=== PATIENT | female | born 1965 | race Caucasian/White ===

== ENCOUNTER 2016-11-26 23:46 | Emergency (ER) | payer OTHER ==
[~2016-11-26] VITALS: Ht 160 cm; Wt 81.8 kg
[2016-11-27] VITALS: BP 158/92; PULSE 88; RESP 16; O2SAT 98
[2016-11-27 01:28] LABS: BASOPHILS % (AUTO) 0.5 % (0-3); EOSINOPHILS % (AUTO) 1.8 % (0-5); MONOCYTES % (AUTO) 4.9 % (4-12); Mean Corpuscular Hemoglobin 30.5 pg (27.0-35.0); Mean Corpuscular Volume 86.5 fL (81-100); NEUTROPHILS % (AUTO) 75.1 % (40-74); Platelet Count 163 bil/L (150-400)
--- NOTE | 2016-11-27 02:19 | ED.REPORT ---
HPI-Abd Pain F 40 and Over Date of Service Nov 27, 2016 ED Provider: Miguel Andersen MD Pt is a 51 year old female with a hx of shingles presenting to the ED complaining of right sided abdominal pain onset right after eating a salad for dinner. Associated symptoms include nausea and vomiting. Denies hx of abdominal pain or GERD. Denies any recent weight loss, diarrhea, fever, or dysuria. Pt's mother is admitted in the hospital and she went down to the cafeteria for dinner when symptoms began. Nursing Notes Stated Complaint: RIGHT SIDE ABDOMINAL PAIN Chief Complaint: Female Abdominal Pain Nursing Notes Reviewed: Yes Allergies: Coded Allergies: No Known Allergies (Verified , 11/09/03) Uncoded Allergies: No Known Allergies (Allergy, Severe, 11/09/03) General Time Seen by MD: 02:03 Chief Complaint Abdominal pain Hx Obtained From: Patient Arrived By: Walk-in Sudden in Onset?: Yes Onset Occurred: Just prior to arrival Context of Onset: Eating Symptom Duration: Since onset Progression since Onset: Constant Location: : RUQ Quality: Painful Severity: Current: Moderate Severity: Maximum: Severe Recent Healthcare: No recent doctor visit, No recent hospitalization Similar Sx Previous: No Past Medical History Past Medical History recent Shingles Past Surgical History Reports: Appendectomy Smoking History Unknown if Ever Smoker Ambulatory Status Independent Review of Systems Constitutional: Denies: Fever GI: Reports: Abdominal pain, Nausea, Vomiting, Denies: Diarrhea Female: Denies: Dysuria Complete sys rev & neg: except as marked. Endocrine: Denies: Weight loss Physical Exam Vital Signs Vital Signs (First) Date Time Temp Pulse Resp B/P Pulse Ox O2 Delivery O2 Flow Rate FiO2 11/27/16 00:00 37 88 16 158/92 98 11/27/16 02:52 Room Air Initial VS: Reviewed, Vital signs abnormal Head / Eyes: Atraumatic, Normocephalic, PERRL ENT: Mucous membranes moist, Conjunctiva normal, No scleral icterus Neck: Supple, Non-tender, Full range of motion Extremities: Vascular intact, Neuro intact, No swelling, No tenderness Skin: Warm, Dry, No cyanosis Neurologic: Alert, Oriented, Nonfocal Psychiatric: Mood/affect normal, Behavior normal, Normal thought content General/Constitutional: Awake, Alert, No acute distress Respiratory / Chest: Breath sounds NL, Breath sounds = bilat, No respiratory distress, No rales, No rhonchi, No wheezing, No stridor Cardiovascular: Heart rate NL, Regular rhythm, Heart sounds NL, Peripheral circulation NL Abdomen: Atraumatic, Soft Tenderness/Guarding/Rebound: Positive: Tender RUQ... (Mild) Interpretation & Diagnostics Lab Results Interpretation Result Diagram: 11/27/16 0125 11/27/16 0125 Test 11/27/16 00:16 11/27/16 01:25 Hold Urine Received (Received) White Blood Count 8.2th/mm3 (3.8-10.1) Red Blood Count 4.59mil/mm3 (3.90-5.20) Hemoglobin 14.0g/dL (12.0-15.6) Hematocrit 39.7% (35.0-46.0) Mean Corpuscular Volume 86.5fL (81-100) Mean Corpuscular Hemoglobin 30.5pg (27.0-35.0) Mean Corpuscular Hemoglobin Concent 35.3% (32.0-37.0) Red Cell Distribution Width 13.1% (12.3-15.4) Platelet Count 163bil/L (150-400) Neutrophils (%) (Auto) 75.1% (40-74) Lymphocytes (%) (Auto) 17.6% (14-46) Monocytes (%) (Auto) 4.9% (4-12) Eosinophils (%) (Auto) 1.8% (0-5) Basophils (%) (Auto) 0.5% (0-3) Sodium Level 137mEq/L (134-144) Potassium Level 4.5mEq/L (3.5-5.2) Chloride Level 102mEq/L (97-108) Carbon Dioxide Level 23mmol/L (18-29) Blood Urea Nitrogen 14mg/dL (6-24) Creatinine 0.61mg/dL (0.57-1.00) Estimat Glomerular Filtration Rate 147mL/min (>59) Glucose Level 132mg/dL (60-99) Calcium Level 9.1mg/dL (8.5-10.1) Magnesium Level 2.0mg/dL (1.6-2.6) Total Bilirubin 0.6mg/dL (0.0-1.2) Aspartate Amino Transf (AST/SGOT) 26U/L (0-50) Alanine Aminotransferase (ALT/SGPT) 19U/L (0-32) Alkaline Phosphatase 73U/L (25-150) Total Protein 6.0g/dL (6.4-8.4) Albumin 3.7g/dL (3.4-5.0) Lipase 22U/L (13-60) Hold Chaudhry Top Tube Received (Received) Lab values outside NL range: no clinical significance. Re-Eval/Medical Decision Med Decision/Clinical Course Postprandial right upper quadrant abdominal pain most likely secondary to gallbladder disease. Labs are reassuring for no complications at this time. 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 Re-Evaluation/Progress : Time of Eval: 02:24 Patient Status: Condition improved Re-Evaluation/Progress Note: Discussed plan for discharge. Pt understands and agrees with plan. Counseled Regarding: Diagnosis, Lab results, Need for follow-up, When/why to return to ED Discharge & Departure Primary Impression: Right upper quadrant abdominal pain Disposition: Home Discharge Condition All VS Reviewed: Yes Condition: Improved Patient Instructions: Abdominal Pain (ED) Additional Instructions: The most likely cause of your abdominal pain is gallstones. There is no evidence at this time of complications like gallbladder infection or inflammation of the liver and pancreas. You will need an ultrasound ordered during the day prior primary provider to check for gallstones, and then a surgical referral as needed. Avoid large meals and fatty food. If you have recurrent pain, take the pain and nausea medicine. If the pain does not resolve or you run a fever he needs to come back to the emergency room for evaluation. Hydrocodone/acetaminophen 5/325, one or 2 pills every 4-6 hours as needed for severe pain, #10 dispensed. Ondansetron 4 mg ODT, 1 pill dissolved orally 4 times a day as needed for nausea. Referrals: Madina Foster (PCP) Giovanni Attestation Portions of this note were transcribed by Linsey Moise. I, Dr. Andersen personally performed the history, physical exam and medical decision-making; I reviewed and confirmed the accuracy of the information in the transcribed note. Signed by: Giovanni Rivers, 11/27/2016. copies to: Madina Foster Howard L MD Nov 27, 2016 02:19 LINSEY MOISE Nov 27, 2016 02:33
[2016-11-27 02:52] VITALS: BP 129/85; PULSE 79; RESP 16; O2SAT 97
[2016-11-27] MEDS ORDERED: Ondansetron 8 mg ODT Tablet PO ONE (03:30)
[2016-11-27] MEDS ORDERED: _HYDROcodone/APAP 5-325 mg Tablet PO PRN (03:35)
[2016-11-27] MEDS ORDERED: _Ondansetron ODT 4 mg Tablet PO PRN (03:35)
[2016-11-27 04:02] VITALS: BP 129/85; PULSE 79; RESP 16; O2SAT 97
== END 2016-11-27 04:03 | disposition home or self-care (01) ==
LOC: SED 23:46
DX: R10.11 Right upper quadrant pain (principal); R11.2 Nausea with vomiting, unspecified
CPT/HCPCS: 36415; 80053; 83690; 83735; 85025; 96374; 99284; J1885